=== PATIENT | male | born 1970 | race Caucasian/White ===

== ENCOUNTER 2022-03-17 15:09 | Emergency (ER) | payer OTHER ==
[~2022-03-17] VITALS: Ht 165.1 cm; Wt 86.4 kg
[2022-03-17] MEDS ORDERED: LISI-894 PO (15:39)
[2022-03-17] MEDS ORDERED: ATOR10TA69 PO (15:51)
[2022-03-17 16:44] VITALS: BP 115/75
[2022-03-17] MEDS ORDERED: OxyCODONE HCL/ACETAMINOPHEN 5-325 MG TABLET PO ONE (17:00)
== END 2022-03-17 19:37 | disposition home or self-care (01) ==
LOC: EMS 15:19
DX: S52.502A Unspecified fracture of the lower end of left radius, initial encounter for closed fracture (principal); W11.XXXA Fall on and from ladder, initial encounter; Y93.89 Activity, other specified; Y92.89 Other specified places as the place of occurrence of the external cause; Y99.8 Other external cause status; I10 Essential (primary) hypertension
CPT/HCPCS: 99284; 99285; 73060-TC; 73070-TC; 73090-TC; 73110-TC; Z7502; Z7610